=== PATIENT | female | born 1985 | race Caucasian/White ===

== ENCOUNTER → 2023-11-21 10:09 | Outpatient (REF) | payer BC, SELFPAY | LOC: WDC 10:09 | PROVIDERS: ATTENDING PHYSICIAN Nurse Practitioner Adult Health; FAMILY PHYSICIAN Nurse Practitioner | DX: N63.20 Unspecified lump in the left breast, unspecified quadrant (principal); N63.21 Unspecified lump in the left breast, upper outer quadrant | CPT/HCPCS: 76642 ==

== ENCOUNTER 2023-12-25 22:22 | Observation (INO) | payer BC, SELFPAY ==
[2023-12-25] VITALS (9 sets, daily range): BP systolic 105–129; BP diastolic 73–93; BMI 27.3; BMI 26.5
[2023-12-25 17:58] LABS: Urine Albumin Negative (Neg - Trace); Urine Bilirubin Negative (Negative); Urine Character Slightly Cloudy (Clear); Urine Color Yellow; Urine Glucose Negative (Negative); Urine Ketone Negative (Negative); Urine Leukocyte Negative (Negative); Urine Nitrite Negative (Negative); Urine Occult Blood Negative (Negative); Urine Urobilinogen Negative (Neg - 1+)
[2023-12-25 18:10] LABS: ALT (SGPT) 20 U/L (0-35); AST (SGOT) 28 U/L (14-36); Alkaline Phosphatase 94 U/L (38-126); Blood Urea Nitrogen 10 mg/dl (7-17); Calcium 10.7 mg/dl (8.4-10.2); Carbon Dioxide 26 mmol/L (22-30); Chloride 102 mmol/L (98-107); Glucose 103 mg/dl (70-99); Potassium 4.6 mmol/L (3.5-5.1); Sodium 142 mmol/L (135-145); Total Bilirubin 0.3 mg/dl (0.2-1.3); eGFR > 60.00
[2023-12-25 18:23] LABS: HCG, Serum Qualitative Screen Negative
--- NOTE | 2023-12-25 18:23 | ED.GENMED ---
History of Present Illness
<DOUG Gillespie - Last Filed: 12/25/23 22:22>
General
Chief Complaint: Dizziness
Source: patient
Exam Limitations: none
Time Seen by Provider: 12/25/23 18:07
Nursing documentation reviewed up to this point in time: agreed with
History of Present Illness
History of Present Illness:
Patient is a 38-year female who presents to the ER for evaluation. Patient reports this morning around 10:30 -11 AM she was walking out of a store and felt lightheaded and had an episode of double vision. She walked to her car and was able to
drive home however since then has not felt normal. She describes a sensation as if she ' just got off of a boat.' She has not had any double vision since earlier this morning. She is mildly nauseous with this. She denies any upper or lower
extremity weakness. After initial episode at 10 AM she did have some tingling in both of her hands with symptoms. Denies any associated headache.
Past History
<DOUG Gillespie - Last Filed: 12/25/23 22:22>
Past History
ED Past Medical History: Asthma
Social History
Tobacco: Non-smoker
Personal:
Living: with family
Employment: Employed
Review of Systems
<DOUG Gillespie - Last Filed: 12/25/23 22:22>
Review of Systems
Allergies reviewed?: Yes
All Other Systems: ROS reviewed and negative except as documented in HPI and ROS
Constitutional: Reports no symptoms
EENT: Reports other (double vision )
Respiratory: Reports no symptoms
Cardiac: Reports no symptoms
ABD/GI: Reports nausea; Denies vomiting
: Reports no symptoms
Musculoskeletal: Reports no symptoms
Skin: Reports no symptoms
Neurological: Reports dizzy; Denies headache or weakness
Psychiatric: Reports no symptoms
Phy Exam
<DOUG Gillespie - Last Filed: 12/25/23 22:22>
General Physical Exam
General Presentation: no apparent distress
General age: appears stated age
General Skin: warm and dry
General Habitus: normal
General Mental: alert
General Hydration: appears well hydrated
Eye Exam
Eye Exam: PERRL, EOMI and other (Patient seems to develop double vision on right and left lateral gaze during exam with nystagmus; eyes do not tract appropriately it appears the left eye inward deviates )
Eye Exam General: PERRL: bilateral and EOM intact: bilateral
Neurological Exam
Neurological Exam: alert, oriented x3, no motor deficits, no sensory deficits and cerebellum intact
Jumana Coma Scale
Eye Opening: Spontaneous
Verbal Response: Oriented
Motor Response: Obeys Commands
GCS Total Score: 15
<Cam Seo MD - Last Filed: 12/25/23 18:56>
Jumana Coma Scale
GCS Total Score: 15
Scores
<DOUG Gillespie - Last Filed: 12/25/23 22:22>
NIH Stroke Score
Level of Consciousness: 0 - Alert
LOC Questions: 0-Answers both correctly
LOC Commands: 0-Performs both correctly
Best Horizontal Gaze: 1-Partial gaze palsy
Visual Douglass: 0=Normal, no visual loss
Facial Palsy: 0=Normal, symmetrical
Motor - Right Arm: 0=No drift 10 seconds
Motor - Left Arm: 0=No drift 10 seconds
Motor - Right Le-No drift 5 seconds
Motor - Left Le-No drift 5 seconds
Limb Ataxia: 0-Absent
Sensation: 0-Normal
Best Language: 0-No aphasia
Dysarthria: 0-Normal
Extinction and Inattention: 0-No abnormality
Total Score:: 1
Course
<DOUG Gillespie - Last Filed: 12/25/23 22:22>
Orders/Labs/Results
Orders:
Orders
12/25/23 17:32
EKG [Electrocardiogram (*1)] Urgent
Reason for Study: Shortness of Breath
EKG- Treatment ONCE
12/25/23 17:40
Test Result ONCE
12/25/23 17:46
Complete Blood Count/With Diff Urgent
Comprehensive Metabolic Panel Urgent
HCG, Serum Qualitative Screen Urgent
TSH Reflex To Free T4 Urgent
Comment: ADDON
Urinalysis Reflex To Culture Urgent
Date Specimen was Collected: 12/25/23
Time Specimen was Collected: 17:40
12/25/23 18:31
CT Head & Neck Angio W/wo IV Urgent
Comment:
Reason For Exam: double vision
12/25/23 18:42
Add On- LAB Urgent
Tests Added?: TSH reflex to T4
12/25/23 21:49
Aspirin 325 mg PO NOW STA
Clopidogrel Bisulfate [Plavix] 300 mg PO NOW STA
12/25/23 21:53
Admit/Transfer Patient As Directed
Co-Sign Provider:
Level of Care: Observation services
Assign to:: Telemetry
Physician / Group: alesia
Diagnosis: cva vs migraine
Reason for Telemetry: CVA/TIA
Date to Stop Telemetry: 12/28/23
Time to Stop Telemetry: 11:00
Code Status As Directed
Resuscitation Status: Full Code
PRN Pain Medication Management As Directed
May give lesser potent ordered pain med per pt: Yes
preference::
Protocol:: Medication orders for pain may be administered in a
manner that supports deferring to patient preference
when the pt is:
- Requesting an ordered lesser potent pain medication.
Least to most potent pain medications are defined
as: acetaminophen < NSAID < tramadol < opioids
(morphine, oxycodone, hydromorphone).
- Requesting a lesser dose of the same medication IF
ORDERED.
- Requesting a less intrusive route of administration
if both routes are prescribed by the provider (PO <
IV).
12/28/23 11:00
DC Protocol for Telemetry ONCE
Abnormal Lab Results
12/25/23
17:46
Hgb 10.2 L g/dL
(12.0-16.0)
Hct 32.6 L %
(37.0-47.0)
MCV 72.4 L fL
(81.0-99.0)
MCH 22.7 L pg
(27.0-31.0)
MCHC 31.3 L g/dL
(33.0-37.0)
RDW 16.2 H %
(11.5-14.5)
Glucose 103 H mg/dl
(70-99)
Calcium 10.7 H mg/dl
(8.4-10.2)
12/25/23 17:46
12/25/23 17:46
Vital Signs
Initial and Last Documented VS:
Initial Vital Signs
Temp Pulse Resp BP Pulse Ox
97.7 F 94 16 127/85 98
12/25/23 17:36 12/25/23 17:36 12/25/23 17:36 12/25/23 17:36 12/25/23 17:36
Last Documented Vital Signs
Temp Pulse Resp BP Pulse Ox
97.7 F 87 18 108/74 97
12/25/23 17:36 12/25/23 22:00 12/25/23 22:00 12/25/23 22:00 12/25/23 22:00
Netezza Developer consulted with Physician
Netezza Developer consulted with physician?: Yes
Name of Physician Consulted: Rayray
<Cam Seo MD - Last Filed: 12/25/23 18:56>
Orders/Labs/Results
Orders:
Orders
12/25/23 17:32
EKG [Electrocardiogram (*1)] Urgent
Reason for Study: Shortness of Breath
EKG- Treatment ONCE
12/25/23 17:40
Test Result ONCE
12/25/23 17:46
Complete Blood Count/With Diff Urgent
Comprehensive Metabolic Panel Urgent
HCG, Serum Qualitative Screen Urgent
TSH Reflex To Free T4 Urgent
Comment: ADDON
Urinalysis Reflex To Culture Urgent
Date Specimen was Collected: 12/25/23
Time Specimen was Collected: 17:40
12/25/23 18:31
CT Head & Neck Angio W/wo IV Urgent
Comment:
Reason For Exam: double vision
12/25/23 18:42
Add On- LAB Urgent
Tests Added?: TSH reflex to T4
12/25/23 21:49
Aspirin 325 mg PO NOW STA
Clopidogrel Bisulfate [Plavix] 300 mg PO NOW STA
12/25/23 21:53
Admit/Transfer Patient As Directed
Co-Sign Provider:
Level of Care: Observation services
Assign to:: Telemetry
Physician / Group: alesia
Diagnosis: cva vs migraine
Reason for Telemetry: CVA/TIA
Date to Stop Telemetry: 12/28/23
Time to Stop Telemetry: 11:00
Code Status As Directed
Resuscitation Status: Full Code
PRN Pain Medication Management As Directed
May give lesser potent ordered pain med per pt: Yes
preference::
Protocol:: Medication orders for pain may be administered in a
manner that supports deferring to patient preference
when the pt is:
- Requesting an ordered lesser potent pain medication.
Least to most potent pain medications are defined
as: acetaminophen < NSAID < tramadol < opioids
(morphine, oxycodone, hydromorphone).
- Requesting a lesser dose of the same medication IF
ORDERED.
- Requesting a less intrusive route of administration
if both routes are prescribed by the provider (PO <
IV).
12/28/23 11:00
DC Protocol for Telemetry ONCE
Abnormal Lab Results
12/25/23
17:46
Hgb 10.2 L g/dL
(12.0-16.0)
Hct 32.6 L %
(37.0-47.0)
MCV 72.4 L fL
(81.0-99.0)
MCH 22.7 L pg
(27.0-31.0)
MCHC 31.3 L g/dL
(33.0-37.0)
RDW 16.2 H %
(11.5-14.5)
Glucose 103 H mg/dl
(70-99)
Calcium 10.7 H mg/dl
(8.4-10.2)
12/25/23 17:46
12/25/23 17:46
Vital Signs
Initial and Last Documented VS:
Initial Vital Signs
Temp Pulse Resp BP Pulse Ox
97.7 F 94 16 127/85 98
12/25/23 17:36 12/25/23 17:36 12/25/23 17:36 12/25/23 17:36 12/25/23 17:36
Last Documented Vital Signs
Temp Pulse Resp BP Pulse Ox
97.7 F 87 18 108/74 97
12/25/23 17:36 12/25/23 22:00 12/25/23 22:00 12/25/23 22:00 12/25/23 22:00
<DOUG Gillespie - Last Filed: 12/25/23 22:22>
MDM/Problems Addressed
MDM/Problems Addressed:
38-year-old female who presents to the ER for evaluation. Patient as documented felt lightheaded this morning had double vision this felt dizzy today and describes this as feel like she does cough a boat. She presents today awake alert no acute
distress no recent trauma no headaches. No blood thinners. She has no complaints of upper or lower extremity numbness or weakness. She had an episode of bilateral tingling in her hands this morning when episode first occurred. On exam she is
awake alert no acute distress normal strength to upper and lower extremities no deficit. Normal sensation. On my exam however patient does have dull vision with right lateral gaze however it appears that her eyes are not tracking appropriately it
appears that the left eye properly tracking. Initially when I examine his first done patient does not see double however patient seems to fatigue and then complains of double vision with both right left gaze. Patient was eval by ED physician Case
discussed with neurology. CT head and neck angio ordered. labs unremarkable.
<DOUG Gillespie - Last Filed: 12/25/23 22:22>
*Radiology
Radiology exam reviewed: radiology read reviewed
*Pulse Oximetry
Patient hypoxic: no
*Critical Care Note
Total Time (30-74mins, 75-104mins- exclusive of procedures): Not Applicable
<DOUG Gillespie - Last Filed: 12/25/23 22:22>
Patient Management
Discussion with other providers: Technical Sales Support Specialist (neuro Dr Reginald Manzo )
ED Attending Note
<DOUG Gillespie - Last Filed: 12/25/23 22:22>
ED Attending Note
ED Attending Note:
Healthy 38-year-old female started with disequilibrium and double vision about 11 AM. No history of same. Did take a DayQuil early this morning. No headache no speech issues. No focal weakness. Some mild paresthesias to both arms.
On exam patient is nontoxic in no distress. Speech is normal. Smiling normal. No facial droop. No drift. Mplokn-hd-gdyf normal. Sgev-he-sqhh normal. Light touch intact.
However on eye exam she does have some mild nystagmus to the left. She also initially did not have any extraocular muscle issue however on repeat and recurrent exam trying to carefully see whether she had bidirectional nystagmus, she did develop
double vision that at times seem to be each eye differently. Cannot specifically located to 1 cranial nerve.
Discussed with neurology. CT angio is pending. Will likely may need admission for further workup and care.
CT a head and neck angio negative. Will admit for further evaluation
-
Portions of this chart may have been created with voice recognition software.� Occasional wrong word or��sound alike� substitutions may have occurred due to the inherent limitations of voice recognition software.
<Cam Seo MD - Last Filed: 12/25/23 18:56>
ED Attending Note
Patient seen and examined by attending physician: Yes
I performed the substantive portion of visit, reviewed & personally made and approve the management plan that is documented in note by myself or LINDA.: Yes
ED Attending Note:
Healthy 38-year-old female started with disequilibrium and double vision about 11 AM. No history of same. Did take a DayQuil early this morning. No headache no speech issues. No focal weakness. Some mild paresthesias to both arms.
On exam patient is nontoxic in no distress. Speech is normal. Smiling normal. No facial droop. No drift. Zosilu-xp-baha normal. Fpby-el-ewhh normal. Light touch intact.
However on eye exam she does have some mild nystagmus to the left. She also initially did not have any extraocular muscle issue however on repeat and recurrent exam trying to carefully see whether she had bidirectional nystagmus, she did develop
double vision that at times seem to be each eye differently. Cannot specifically located to 1 cranial nerve.
Discussed with neurology. CT angio is pending. Will likely may need admission for further workup and care.
Discharge Plan
Departure
Patient Disposition: Admit
Date of Disposition: 12/25/23
Time of Disposition: 21:28
Admit to: Med/Surg
Admit to doctor: hospitalist
Presentation/result/management discussed w/ accepting MD/DO: Hospitalist
Patient with high blood pressure during this ER visit?: Yes
Condition: Fair
Covid-19: Not Applicable
Discharge Problem:
Diplopia, Dizziness
Prescriptions:
No Action
DayQuil Sinus Pressure/Pain 30-200 mg Tablet
1 tab PO DAILYPRN PRN (Reason: sinus issues)
Referrals:
Caryl Rodriguez CRNP [Family Provider] -
Interventions
Interventions:
*Risk Screen - Suicide Last Done: 12/25/23 17:36
*Neglect/Abuse Screening Last Done: 12/25/23 17:36
ED- Fall Risk Assessment Last Done: 12/25/23 18:34
*ED COVID-19 Vaccine History Last Done: 12/25/23 18:34
ED- Neurological Assessment Last Done: 12/25/23 22:00
ED Swallowing Screen Last Done: 12/25/23 19:58
Discharge Date and Time
Print Language: SOU[place] AFR[place]
[2023-12-25 18:26] LABS: % Basophils 0.4 % (0-2); % Eosinophils 0.3 % (0-6); % Immature Granulocytes 0.5 % (0-0.5); % Lymphocytes 26.2 % (20.5-51.1); % Monocytes 8.2 % (1.7-9.3); % Neutrophils 64.4 % (42.2-75.2); Absolute Monocytes 0.6 10^3/uL (0.1-0.6); Absolute Neutrophils 4.8 10^3/uL (1.4-6.5); Hematocrit 32.6 % (37.0-47.0); Hemoglobin 10.2 g/dL (12.0-16.0); Mean Corp Hgb Conc. 31.3 g/dL (33.0-37.0); Mean Corpuscular Hgb 22.7 pg (27.0-31.0); Mean Corpuscular Volume 72.4 fL (81.0-99.0); Nucleated Red Blood Cells % 0 %; Red Cell Dist. Width 16.2 % (11.5-14.5); White Blood Cell Count 7.5 10^3/uL (4.8-10.8)
[2023-12-25 19:49] LABS: TSH Reflex To Free T4 1.81 uIU/ml (0.47-4.68)
[2023-12-25] MEDS: PLAVIX 300 MG PO (21:58)
[2023-12-25] MEDS: ASPIRIN 325 MG PO (21:58)
--- NOTE | 2023-12-25 21:59 | HPS.HSE ---
Family Physician
-
Family Physician: Caryl Rodriguez
Chief Complaint
-
disequilibrium
History of Present Illness
38-year-old female without past medical history presenting with lightheadedness this morning as she was walking out of a store and had an episode of double vision. She walked to her car and was able to drive home but has not felt normal since then.
She described this sensation as if she just got off a boat and off balance. She denies any further double vision since the morning. She has mild nausea. She has frontal headache described as throbbing bilaterally which she developed later. She
denies upper or lower extremity weakness. She was noted by primary to have some slurred speech but she denies this. After the initial episode she did have tingling in both of her hands and tongue which she continues to have. She denies any
sensitivity to light. She denies any history of migraines.
She denies any family history of neurological problems.
Denies smoking or alcohol or drugs.
Medical History
Past Medical History
Past Medical History: Reports None
Past Surgical History: Reports Other (wisdom teeth surgery, intestinal blockage surgery)
Social History
Tobacco: Non-smoker
Alcohol: None
Drug: None
Family History
Family History: Not pertinent
Allergies / Home Medications
Allergies reflects when Allergies were last updated in [facility].
Home Medications with original date entered in [facility]
Allergy/Medication List:
Allergies
Allergy/AdvReac Type Severity Reaction Status Date / Time
No Known Allergies Allergy Verified 12/25/23 17:39
Home Medications
pseudoephedrine-ibuprofen 30 mg-200 mg tablet 1 tab PO DAILYPRN PRN sinus issues 12/25/23
Review of Systems
-
History Source: Patient
A 12 point ROS was completed and negative except as noted: Yes
Constitutional: Reports No Symptoms
EENT: Reports No Symptoms
Respiratory: Reports No Symptoms
Cardiac: Reports No Symptoms
Abdomen/GI: Reports No Symptoms
: Reports No Symptoms
Musculoskeletal: Reports No Symptoms
Skin: Reports No Symptoms
Neurological: Reports See HPI
Endocrine: Reports No Symptoms
Hematologic/Lymphatic: Reports No Symptoms
Psych: Reports No Symptoms
Physical Exam
Vital Signs
Vital Signs
Temp Pulse Resp BP Pulse Ox
97.7 F 91 24 121/93 98
12/25/23 17:36 12/25/23 19:30 12/25/23 19:30 12/25/23 19:00 12/25/23 19:30
Physical Exam
General: Well Developed, Well Nourished and No Apparent Distress
HEENT: NormoCephalic, Moist mucous membranes and Atraumatic
Respiratory: Clear
Cardiac: S1/S2 and Regular Rhythm; No Murmur or Rub
GI: Soft, Non Tender, Non Distended and Normal Bowel Sounds; No Organomegaly
Rectal: Deferred by Provider
Musculoskeletal: No Clubbing, No Cyanosis and No Edema
Skin: No Rash
Neuro: Nonfocal/grossly intact and Other (nystagmus with leftward gaze )
Laboratory Results
-
12/25/23 17:46
12/25/23 17:46
Laboratory Results
Total Bilirubin 0.3 mg/dl (0.2-1.3) 12/25/23 17:46
AST 28 U/L (14-36) 12/25/23 17:46
ALT 20 U/L (0-35) 12/25/23 17:46
Alkaline Phosphatase 94 U/L (38-126) 12/25/23 17:46
Data Reviewed
-
Lab Data: Labs Reviewed by me
Old Records: Reviewed
Impression/Plan
-
IMPRESSION:
PLAN:
# Diplopia/bilateral upper extremity tingling/disequilibrium possible TIA/CVA versus migraine versus cranial nerve palsy
-Nystagmus with leftward gaze
-CTA head and neck unremarkable
-Check MRI brain
-Aspirin 325 mg, Plavix 300 mg to be given
-Zofran, toradol as needed
-Neurochecks per protocol
-Neurology consulted
Full code
DVT prophylaxis�SCDs
Regular diet
--- NOTE | 2023-12-25 23:52 | PTCARENOTE ---
Patient arrived on unit @2312 via stretcher, ambulate to bed with standby assist. Patient AAOx3 denies any double vision, denies any numbness, denies any tingling. Patient denies any pain or discomfort, c/o feeling 'a little' dizzy with some
lightheadedness. Skin assessment completed, oriented to unit, call kelsey within reach.
[2023-12-26 03:05] VITALS: BP 109/71
[2023-12-26 06:52] LABS: % Basophils 0.4 % (0-2); % Eosinophils 0.7 % (0-6); % Immature Granulocytes 0.3 % (0-0.5); % Lymphocytes 20.9 % (20.5-51.1); % Monocytes 10.4 % (1.7-9.3); % Neutrophils 67.3 % (42.2-75.2); Absolute Eosinophils 0.1 10^3/uL (0-0.7); Absolute Lymphocytes 1.5 10^3/uL (1.2-3.4); Absolute Monocytes 0.7 10^3/uL (0.1-0.6); Absolute Neutrophils 4.8 10^3/uL (1.4-6.5); Hematocrit 31.9 % (37.0-47.0); Mean Corp Hgb Conc. 31.3 g/dL (33.0-37.0); Mean Corpuscular Hgb 22.8 pg (27.0-31.0); Mean Corpuscular Volume 72.7 fL (81.0-99.0); Mean Platelet Volume 9.4 fL (7.4-10.4); Nucleated Red Blood Cells % 0 %; Platelet Count 386 10^3/uL (130-400); Red Blood Cell Count 4.39 10^6/uL (4.20-5.40); Red Cell Dist. Width 16.3 % (11.5-14.5); White Blood Cell Count 7.1 10^3/uL (4.8-10.8)
[2023-12-26 07:07] LABS: ALT (SGPT) 20 U/L (0-35); AST (SGOT) 27 U/L (14-36); Albumin 4.5 g/dl (3.5-5.0); Alkaline Phosphatase 86 U/L (38-126); Blood Urea Nitrogen 10 mg/dl (7-17); Calcium 9.7 mg/dl (8.4-10.2); Carbon Dioxide 22 mmol/L (22-30); Chloride 106 mmol/L (98-107); Estimated Creatinine Clearance 83 ml/min; Glucose 93 mg/dl (70-99); Potassium 4.2 mmol/L (3.5-5.1); Sodium 142 mmol/L (135-145); Total Bilirubin 0.4 mg/dl (0.2-1.3); Total Protein 7.3 g/dl (6.3-8.2); eGFR > 60.00
[2023-12-26 07:19] VITALS: BP 129/81
--- NOTE | 2023-12-26 08:02 | W.PN.HOSP.TC ---
Today's Communication/Plan
-
.
Assessment / Plan
Assessment / Plan
Assessment/plan
#Diplopia
#Concerns for possible TIA/CVA
#Disequilibrium from possible vestibular neuritis
-Nystagmus with leftward gaze on presentation
-CTA head and neck unremarkable
-MRI brain 12/26/23 with no acute intracranial abnormality
-Aspirin 325 mg, Plavix 300 mg administered in the ER
-Neurology consulted, pending evaluation
-Pain medications, antinausea medications as needed
#Microcytic Anemia
-Check Iron panel
-Will probably benefit from iron supplementation.
CODE STATUS-full code
DVT prophylaxis-SCDs
Anticipated Discharge: Within 24 hours
Subjective/Interval History
-
Patient seen and examined at bedside. She reports improvement in her symptoms from last night on presentation. She denies headaches at this time. Denies slurred speech at this time.
Objective Data
-
Labs:
Laboratory Results
12/26/23
06:32
WBC 7.1
Hgb 10.0 L
Hct 31.9 L
Plt Count 386
Sodium 142
Potassium 4.2
Chloride 106
Carbon Dioxide 22
BUN 10
Creatinine 0.8
Glucose 93
Calcium 9.7
Total Bilirubin 0.4
AST 27
ALT 20
Alkaline Phosphatase 86
Vital Signs:
Vital Signs
Temp Pulse Resp BP Pulse Ox
98.2 F 77 16 129/81 97
12/26/23 07:19 12/26/23 07:19 12/26/23 07:19 12/26/23 07:19 12/26/23 07:19
Review of Systems
-
All other systems: Reviewed and negative (Except as documented)
Physical Exam
-
General: Well Developed and No Apparent Distress
HEENT: Normocephalic and Atraumatic
Respiratory: Clear to Auscultation
Cardiac: Regular Rhythm and S1/S2
GI: Soft, Nontender, Nondistended and Normal Bowel Sounds
Musculoskeletal: No Edema
Neuro: Awake, Alert, Oriented, AO x 3 and Nonfocal/Grossly Intact
[2023-12-26 08:45] LABS: HDL Cholesterol 42 mg/dl; LDL Cholesterol, Calculated 131 mg/dl; Total Cholesterol 195 mg/dl (50-199); Triglyceride 113 mg/dl (10-149); Very Low Density Lipoprotein 22 mg/dl (0-30)
[2023-12-26 10:17] LABS: Iron 52 ug/dl (37-170)
[2023-12-26] MEDS: TYLENOL 650 MG PO (10:25)
[2023-12-26 10:26] LABS: Percent Saturation 11 % (20-50); Total Iron Binding Capacity 449 ug/dl (265-497)
[2023-12-26 11:33] VITALS: BP 118/66
[2023-12-26 12:11] LABS: Ferritin 4.7 ng/ml (6.24-137)
--- NOTE | 2023-12-26 12:44 | W.DCSUMMARY ---
Documented by User: Verna Calloway MD, Resident 12/26/23 13:35
Discharge Summary
Discharge Data
Date of Admission: 12/25/23
Date of Discharge: 12/26/23
-
Pending Results: No
Hospital Course
This is a 38-year-old female with no active medical history, history of sinusitis that presented to ED complaining of diplopia, paresthesias in the upper extremities, disequilibrium. Laboratory studies in the ER unremarkable for significant
metabolic abnormalities. CT head, CTA head and neck, MRI brain without contrast have all been performed and showed NO acute significant findings that correlate to her symptoms. MRI did show a Small mucous retention cyst of the posterior right
ethmoid sinus. Patient did mention she has been dealing with head colds over the week. Neurology was consulted for further evaluation. Patient was cleared from a neurology standpoint after normal exam, with recommendation to follow Ophthalmology and
neurology outpatient for further workup.
She will be discharged home today with 5 day trial of meclizine empirically for disequilibrium symptoms.
Her labs showed significant microcytic anemia. Further workup with iron studies showed evidence of iron deficiency anemia. She was started on daily oral iron supplementation today, and to be continued outpatient. She is instructed to follow up with
her PCP to monitor levels.
On the day of discharge, patient was afebrile with vital signs stable. Neurologic exam showed no focal deficits and previously described nystagmus had resolved.
Discharge Plan
-
Patient Disposition: Home (Routine Discharge)
Discharge Diagnosis/Procedures: Idiopathic Diplopia
Condition: Good
Diet: Regular
Activity: No restrictions
Referrals:
Jovany Montelongo MD [Active] - in one to two weeks
Caryl Rodriguez CRNP [Family Provider] - in less than 1 week
Mary Kate Lewis MD [Active] - in two to four weeks
Macie Carlin MD [Active] - in one to two weeks
Prescriptions:
New
meclizine 50 mg tablet
50 mg PO DAILY Qty: 5 0RF
ferrous sulfate 325 mg (65 mg iron) Tablet
325 mg PO Q OTHER DAY Qty: 15 0RF
Continued
pseudoephedrine-ibuprofen 30-200 mg Tablet
1 tab PO DAILYPRN PRN (Reason: sinus issues)
Discharge Orders:
Discharge Patient (As Directed); Ordered 12/26/23
Ordered By: Verna Calloway
Discharge Date and Time
Print Language: KYRGYZ

Documented by User: Delvis Chan DO 12/26/23 13:57
Discharge Summary
Discharge Data
Date of Admission: 12/25/23
Date of Discharge: 12/26/23
Discharge Plan
-
Patient Disposition: Home (Routine Discharge)
Discharge Diagnosis/Procedures: Idiopathic Diplopia
Condition: Good
Diet: Regular
Activity: No restrictions
Referrals:
Jovany Montelongo MD [Active] - in one to two weeks
Caryl Rodriguez CRNP [Family Provider] - in less than 1 week
Mary Kate Lewis MD [Active] - in two to four weeks
Macie Carlin MD [Active] - in one to two weeks
Prescriptions:
New
meclizine 50 mg tablet
50 mg PO DAILY Qty: 5 0RF
ferrous sulfate 325 mg (65 mg iron) Tablet
325 mg PO Q OTHER DAY Qty: 15 0RF
Continued
pseudoephedrine-ibuprofen 30-200 mg Tablet
1 tab PO DAILYPRN PRN (Reason: sinus issues)
Discharge Orders:
Discharge Patient (As Directed); Ordered 12/26/23
Ordered By: Verna Calloway
Discharge Date and Time
Print Language: KYRGYZ
--- NOTE | 2023-12-26 13:09 | CON.NEURO4 ---
Consultation - Neurology 4
-
CONSULTING PHYSICIAN: Jovany Montelongo MD neurology
REFERRING PHYSICIAN: Hospitalist
DICTATED BY: Jovany Montelongo MD
DATE/TIME OF REQUEST: December 25, 2023
DATE/TIME OF CONSULTATION: December 26, 2023
Reason for Consultation: Double vision
History of Present Illness:
This is a 38 year old right) handed female) who has presented to the hospital with (chief complaint) of double vision. She gives a history of flulike symptoms over the last 1 week and had been in usual state of health till yesterday. While having
breakfast she had double vision-horizontal that resolved. She was able to drive. Subsequently she had an episode of headache double vision and dizziness. No known history of head injury and no history of.
No history of migraines. No Botox injections. No recent vaccinations
No difficulty speaking swallowing loss of balance incoordination or gait impairment. No tinnitus or hearing loss. No focal weakness or numbness of the face arms or extremities.
Past Medical History: None
Surgical History: None
Family History: No family history of migraine
Social History: lives at home does not smoke use alcohol
Allergies: No known allergies
Home Medications: DayQuil and
Review of Symptoms:
Patient denies any fever, headache, chest pain, shortness of breath, GI or symptoms.
�Per the HPI.�All systems are reviewed negative except above.
�-
Vital Signs:
The patient has Temp 36.9 C Pulse 90 Resp 18 BP 118/66 Pulse Ox 98
Physical Exam:
The patient is afebrile, heart sounds S1 and S2 are (regular / irregular), and chest is clear to auscultation bilaterally.
- If not clear, describe.
Neurologic Examination:
The patient is awake, alert and oriented x 3. She) is able to follow commands and answer questions appropriately. There is no aphasia or dysarthria. On cranial nerve assessment, pupils are 3 mm bilateral, round and reactive to light and
accommodation. Visual rhoades are full. Extraocular movements are intact. Facial sensations are intact and bilaterally symmetrical, there is no facial asymmetry. Hearing is intact bilaterally to normal conversation volume. Tongue palate and uvula
are midline. Sternocleidomastoid strengths are full bilaterally. Motor strengths are 5/5 bilateral upper and lower extremities on medical research [place] scale. There is no drift or involuntary movement noted. Deep tendon reflexes are 2+ bilateral
upper and lower extremities and Babinski is absent bilaterally. Sensations of pain, touch, temperature and vibration are intact and bilaterally symmetrical. There was no extinction noted on double simultaneous stimulation. Coordination is intact by
finger to nose bilaterally. Romberg's negative gait is within normal limits
Lab Results: See addendum
Neuro Imaging: CT angiogram normal vasculature. MRI brain normal cortex and ventricles
Impression:
Ms. SUBHA OLIVIER is a 38 year old F who has presented to the hospital with (symptoms/chief complaint) transient double vision that is resolved.
Differentials for the patient's presentation include:
1. Adverse drug reaction
2. Viral syndrome
Recommendations:
1. Ophthalmology evaluation as outpatient
Discussed patient care with: Hospitalist and patient
Allergies
-
Allergies
Allergy/AdvReac Type Severity Reaction Status Date / Time
No Known Allergies Allergy Verified 12/25/23 17:39
Vital Signs and Labs
-
Vital Signs and Labs:
Vital Signs
Temp Pulse Resp BP Pulse Ox
36.9 C 90 18 118/66 98
12/26/23 11:33 12/26/23 11:33 12/26/23 11:33 12/26/23 11:33 12/26/23 11:33
Lab Results
12/26/23 06:32
12/26/23 06:32
Sodium 142 mmol/L (135-145) 12/26/23 06:32
Potassium 4.2 mmol/L (3.5-5.1) 12/26/23 06:32
BUN 10 mg/dl (7-17) 12/26/23 06:32
Glucose 93 mg/dl (70-99) 12/26/23 06:32
Calcium 9.7 mg/dl (8.4-10.2) 12/26/23 06:32
LDL Cholesterol, Calc 131 mg/dl 12/26/23 06:32
Medications
-
Active Medications
Generic Name Dose Route Start Last Admin
Trade Name Freq PRN Reason Stop Dose Admin
Acetaminophen 650 mg 12/25/23 23:15 12/26/23 10:25
Acetaminophen 325 Mg Tablet PO 01/22/24 23:14 650 mg
Q4HPRN PRN Administration
mild pain/GIBSON/temp> 100.4F
Ferrous Sulfate 325 mg 12/26/23 13:00
Ferrous Sulfate 325 Mg Tablet PO 01/23/24 12:59
DAILY AIYANA
Ketorolac Tromethamine 15 mg 12/25/23 23:15
Ketorolac 15 Mg/Ml Injection IV 12/30/23 23:14
Q6HPRN PRN
headache
Ondansetron HCl 4 mg 12/25/23 23:15
Ondansetron 4 Mg/2 Ml Vial IV 01/22/24 23:14
Q6HPRN PRN
nausea and vomiting
Home Medications
�Medication �Instructions �Recorded
pseudoephedrine-ibuprofen 30 1 tab PO DAILYPRN PRN sinus issues 12/25/23
mg-200 mg tablet
[2023-12-26] MEDS: FEOSOL 325 MG PO (13:36)
== END 2023-12-26 14:17 | disposition home or self-care (01) ==
LOC: 3 WEST ACU 22:22
PROVIDERS: Emergency Medicine; Student in an Organized Health Care Education/Training Program; ADMITTING PHYSICIAN Hospitalist; ATTENDING PHYSICIAN Internal Medicine; CONSULT PHYSICIAN Psychiatry & Neurology Neurology; EMERGENCY PHYSICIAN Emergency Medicine; FAMILY PHYSICIAN Nurse Practitioner
DX: H53.2 Diplopia (principal); R42 Dizziness and giddiness; R11.0 Nausea; R20.2 Paresthesia of skin; J45.909 Unspecified asthma, uncomplicated; H55.00 Unspecified nystagmus; R51.9 Headache, unspecified; R47.81 Slurred speech; D50.9 Iron deficiency anemia, unspecified
CPT/HCPCS: 70496; 70498; 70551; 80053; 80061; 81003; 82728; 83540; 83550; 84443; 84703; 85025; 93005; 99285; G0378; Q9967

== ENCOUNTER → 2024-01-13 15:02 | Outpatient (REF) | payer BC, SELFPAY | LOC: WDC 15:02 | PROVIDERS: ATTENDING PHYSICIAN Nurse Practitioner Adult Health; FAMILY PHYSICIAN Nurse Practitioner | DX: R92.2 Inconclusive mammogram (principal) | CPT/HCPCS: 76641 ==

== ENCOUNTER → 2025-01-13 19:04 | Outpatient (REF) | payer OTHER, SELFPAY | LOC: WDC 19:04 | PROVIDERS: ATTENDING PHYSICIAN Nurse Practitioner Adult Health; FAMILY PHYSICIAN Nurse Practitioner | DX: Z12.31 Encounter for screening mammogram for malignant neoplasm of breast (principal) | CPT/HCPCS: 77063; 77067 ==